=== PATIENT | female | born 1980 | race African-American/Black ===

== ENCOUNTER 2021-11-21 15:06 | Emergency (ER) | payer OTHER ==
[~2021-11-21] VITALS: Ht 162.6 cm; Wt 71.3 kg
[2021-11-21] MEDS ORDERED: VICODIN HP 10-1 EAC1 PO (15:30)
[2021-11-21] MEDS ORDERED: CYCLOBENZAPRINE10 MG PO (15:41)
== END 2021-11-21 15:49 | disposition home or self-care (01) ==
LOC: FSED 15:16
DX: S13.4XXA Sprain of ligaments of cervical spine, initial encounter (principal); V43.52XA Car driver injured in collision with other type car in traffic accident, initial encounter; Y92.481 Parking lot as the place of occurrence of the external cause
CPT/HCPCS: 99282